=== PATIENT | female | born 1935 | race Hispanic/Latino ===

== ENCOUNTER 2016-12-17 03:34 | Inpatient (IN) | payer MEDICARE, OTHER ==
[2016-12-17 04:17] LABS: BASO # 0.1 K/uL (0.0-0.2); BASO % 0.6 % (0.0-2.0); EOS # 0.1 K/uL (0.0-0.7); EOS % 0.9 % (0.0-4.0); HEMOGLOBIN 10.3 g/dL (12.0-16.0); LYMPH # 0.9 K/uL (1.0-4.3); LYMPH % 9.6 % (20.0-40.0); MEAN CELL VOLUME 86.4 fl (81.0-99.0); MEAN CORPUSCULAR HEMOGLOBIN 28.9 pg (27.0-31.0); MEAN CORPUSCULAR HGB CONC 33.5 g/dL (33.0-37.0); MEAN PLATELET VOLUME 7.1 fl (7.2-11.7); MONO # 0.5 K/uL (0.0-0.8); MONO % 5.7 % (0.0-10.0); NEUT # 7.8 K/uL (1.8-7.0); NEUT % 83.2 % (50.0-75.0); PLATELET COUNT 433 K/uL (130-400); RBC 3.57 Mil/uL (3.80-5.20); RED CELL DISTRIBUTION WIDTH 13.9 % (11.5-14.5); WHITE BLOOD COUNT 9.4 K/uL (4.8-10.8)
[2016-12-17] MEDS ORDERED: Iohexol 240 (50 ml) PO ONE (04:24)
[2016-12-17 04:32] LABS: ALB/GLOB RATIO 1.2 (1.0-2.1); CALCIUM 9.3 mg/dL (8.4-10.2)
[2016-12-17 04:35] LABS: PROTHROMBIN TIME 11.1 Seconds (9.8-13.1)
[2016-12-17 04:37] LABS: PARTIAL THROMBOPLASTIN TIME 29.2 Seconds (25.6-37.1)
[2016-12-17] MEDS ORDERED: Iohexol 240 (50 ml) ONE (04:38)
--- NOTE | 2016-12-17 05:03 | ED PDOC ---
HPI: Abdomen Time Seen by Provider: 12/17/16 03:41 Chief Complaint (Nursing): Abdominal Pain Chief Complaint (Provider): Abdominal Pain History Per: Patient History/Exam Limitations: no limitations Onset/Duration Of Symptoms: Days (x 4) Current Symptoms Are (Timing): Still Present Location Of Pain/Discomfort: LUQ Additional History Per: Family (daughter) Additional Complaint(s): Chasidy Mai is an 80 y/o female with a past medical history of anemia , chronic constipation, and hypertension, who was brought to the ED via EMS for complaints of abdominal pain with associated nausea and vomiting, onset 3 days ago. Pain is worse on the left side. Patient denies constipation, states last bowel movement was 1 day ago. Also denies associated fever, cough, chest pain, and shortness of breath. Patient has had decreased appetite and vomited clear fluid. PMD: Micheal Mercedes MD Past Medical History Reviewed: Historical Data, Nursing Documentation, Vital Signs Vital Signs: Last Vital Signs Temp 98.6 F 12/17/16 03:36 Pulse 71 12/17/16 03:36 Resp 18 12/17/16 03:36 BP 131/70 12/17/16 03:36 Pulse Ox 95 12/17/16 06:21 - Medical History PMH: Anemia, Gall Bladder Disease, HTN, Hyperlipidemia Other PMH: Chronic constipation - Surgical History Surgical History: No Surg Hx - Family History Family History: States: Unknown Family Hx - Social History Current smoker - smoking cessation education provided: No Alcohol: None Drugs: Denies - Allergies Allergies/Adverse Reactions: Allergies Allergy/AdvReac Type Severity Reaction Status Date / Time No Known Allergies Allergy Verified 12/17/16 03:36 Review of Systems ROS Statement: Except As Marked, All Systems Reviewed And Found Negative Constitutional: Positive for: Other (Loss of appetite). Negative for: Fever Cardiovascular: Negative for: Chest Pain Respiratory: Negative for: Cough, Shortness of Breath Gastrointestinal: Positive for: Nausea, Vomiting, Abdominal Pain (Left-sided). Negative for: Constipation Physical Exam - Reviewed Nursing Documentation Reviewed: Yes Vital Signs Reviewed: Yes - Physical Exam Appears: Positive for: Well, Non-toxic, No Acute Distress Head Exam: Positive for: ATRAUMATIC, NORMAL INSPECTION, NORMOCEPHALIC Skin: Positive for: Normal Color, Warm, Dry Eye Exam: Positive for: EOMI, Normal appearance, PERRL ENT: Positive for: Normal ENT Inspection Neck: Positive for: Normal, Painless ROM, Supple Cardiovascular/Chest: Positive for: Regular Rate, Rhythm, Murmur (Systolic murmur 3/6) Respiratory: Positive for: Normal Breath Sounds. Negative for: Accessory Muscle Use, Respiratory Distress Gastrointestinal/Abdominal: Positive for: Soft, Tenderness (Mild LUQ tenderness on palpation). Negative for: Normal Exam Back: Positive for: Normal Inspection. Negative for: Vertebral Tenderness Extremity: Positive for: Normal ROM. Negative for: Pedal Edema, Deformity Neurologic/Psych: Positive for: Alert, Oriented - Laboratory Results Result Diagrams: 12/17/16 03:57 12/17/16 03:57 - ECG O2 Sat by Pulse Oximetry: 95 (RA) Pulse Ox Interpretation: Normal Medical Decision Making Medical Decision Making: Time: 03:48 Initial Impression: 80 y/o female with abdominal pain Initial Plan: --Labs --EKG --Iohexol 50 ml PO --Pending CT Abdomen/Pelvis Time: 04:36 --Toradol 10 mg IV --Zofran 4 mg IV Time: 05:38 --Patient is to be admitted to ED-OBS for abdominal pain Scribe Attestation: Documented by Candice Reyna, acting as a scribe for Farhan Magana MD Provider Scribe Attestation: All medical record entries made by the Scribe were at my direction and personally dictated by me. I have reviewed the chart and agree that the record accurately reflects my personal performance of the history, physical exam, medical decision making, and the department course for this patient. I have also personally directed, reviewed, and agree with the discharge instructions and disposition. ED OBSERVATION Date of observation admission: 12/17/16 Time of observation admission: 05:38 - Observation admission statement Patient is being placed in observation because:: Abdominal pain - Goals of Observation Goals of observation are:: Determine cause and improve symptoms - Progress Note Progress Note: 12/17/16 Time: 05:38 --Patient is resting comfortably. Vital signs are stable. Time: 05:52 --CT Abd/Pelvis is scheduled for 07:00 Time: 07:00 --Patient is signed out by me to Giselle Ochoa MD, pending CT Abdomen/Pelvis and reevaluation Disposition - Clinical Impression Clinical Impression: Abdominal pain - Patient ED Disposition Is Patient to be Admitted: Transfer of Care - Disposition Disposition: Transfer of Care Disposition Time: 05:40 Condition: FAIR Patient Signed Over To: Giselle Ochoa (Pending CT scan and reevaluation)
[2016-12-17 06:27] LABS: BANDS 1 % (0-2); EOSINOPHIL 2 % (0-7); LYMPHOCYTE 11 % (20-50); MONOCYTE 1 % (0-10); NEUTROPHIL 85 % (42-75); PLATELET ESTIMATE SLIGHTLY INCREASED (NORMAL); TOTAL CELLS COUNTED 100
[2016-12-17 06:28] LABS: ANISOCYTOSIS SLIGHT; HYPOCHROMIC SLIGHT; TEARDROP CELLS SLIGHT
--- NOTE | 2016-12-17 07:21 | ED PDOC ---
- Laboratory Results Result Diagrams: 12/17/16 03:57 12/17/16 03:57 - ECG O2 Sat by Pulse Oximetry: 95 (RA) Pulse Ox Interpretation: Normal Medical Decision Making Medical Decision Makin:00 Patient signed over pending CT Abdomen/Pelvis. 8:44 Patient's vitals are stable. Pending CT. 9:03 Reevaluation: CT Results FINDINGS: LOWER THORAX: Unremarkable. LIVER: Unremarkable. No gross lesion or ductal dilatation. GALLBLADDER AND BILE DUCTS: Unremarkable. PANCREAS: Unremarkable. No gross lesion or ductal dilatation. SPLEEN: Unremarkable. ADRENALS: Unremarkable. No mass. KIDNEYS AND URETERS: Unremarkable. No hydronephrosis. No solid mass. VASCULATURE: Unremarkable. No aortic aneurysm. BOWEL: Mild colitis primarily affecting the sigmoid colon without mechanical obstruction. APPENDIX: No abnormalities to suggest acute appendicitis. No right lower quadrant inflammatory processes identified. PERITONEUM: Unremarkable. No free fluid. No free air. LYMPH NODES: Unremarkable. No enlarged lymph nodes. BLADDER: Unremarkable. REPRODUCTIVE: Unremarkable. BONES: No acute fracture. OTHER FINDINGS: The pessary device superior spleen satisfactory position. IMPRESSION: Mild colitis confined to the sigmoid colon without mechanical obstruction. Informed pt and family of the CT and lab results. pt stil has some discomfort and nausea. pt has mild colitis. ordered antibiotics to treat. pt to be admitted to Dr Joseph hammer, [facility] practice resident. Resident Dr Hernandez made aware. Obs MS. for hydration, antibiotics and GI consult. Scribe Attestation: Documented by Svitlana Carolina, acting as a scribe for Giselle Ochoa MD. Provider Scribe Attestation: All medical record entries made by the Scribe were at my direction and personally dictated by me. I have reviewed the chart and agree that the record accurately reflects my personal performance of the history, physical exam, medical decision making, and the department course for this patient. I have also personally directed, reviewed, and agree with the discharge instructions and disposition. Disposition Discussed With : Nyasia Valerio - Clinical Impression Clinical Impression: Abdominal pain, Colitis - POA Present On Arrival: None - Disposition Disposition: Admitted as In-Patient Disposition Time: 09:09 Condition: STABLE
--- NOTE | 2016-12-17 08:40 | CT ---
PROCEDURE: CT Abdomen and Pelvis with contrast HISTORY: Abdominal pain COMPARISON: None. TECHNIQUE: Contrast dose: Oral contrast only. Radiation dose: Total exam DLP = 476.86 mGy-cm. This CT exam was performed using one or more of the following dose reduction techniques: Automated exposure control, adjustment of the mA and/or kV according to patient size, and/or use of iterative reconstruction technique. FINDINGS: LOWER THORAX: Unremarkable. LIVER: Unremarkable. No gross lesion or ductal dilatation. GALLBLADDER AND BILE DUCTS: Unremarkable. PANCREAS: Unremarkable. No gross lesion or ductal dilatation. SPLEEN: Unremarkable. ADRENALS: Unremarkable. No mass. KIDNEYS AND URETERS: Unremarkable. No hydronephrosis. No solid mass. VASCULATURE: Unremarkable. No aortic aneurysm. BOWEL: Mild colitis primarily affecting the sigmoid colon without mechanical obstruction. APPENDIX: No abnormalities to suggest acute appendicitis. No right lower quadrant inflammatory processes identified. PERITONEUM: Unremarkable. No free fluid. No free air. LYMPH NODES: Unremarkable. No enlarged lymph nodes. BLADDER: Unremarkable. REPRODUCTIVE: Unremarkable. BONES: No acute fracture. OTHER FINDINGS: The pessary device superior spleen satisfactory position. IMPRESSION: Mild colitis confined to the sigmoid colon without mechanical obstruction.
[2016-12-17] MEDS ORDERED: Sodium Chloride 0.9% 1,000 ML IV STA (09:10)
--- NOTE | 2016-12-17 10:49 | CP.PCM.HP ---
History of Present Illness - History of Present Illness History of Present Illness: 80 yr old F presented to ED with complaint of nausea , vomiting and abd pain x 3 days s/p eating a grilled cheese sandwhich. She has not been able to tolerate PO diet and most recent episode of clear emesis was this AM, she could not take her meds due to nausea. Patient reports mid abd pain is mainly on left and radiates to the right, is persistent, dull ache, was 10/10. She has PMHx including HTN, HLD, chronic constipation, anemia. In the past she has seen GI- Dr. David for gallstone disease. Patient denies chest pain, SOB, weakness, dizziness or headaches. Her last bowel movement was 1 day ago and was normal, denies blood in stool, denies diarrhea, denies dysuria. Daughters are at bedside (Kaley [phone] and Milly [phone]), report patient had colonoscopy and upper endoscopy <2yrs ago and were told everything was within normal limits. PMD: Dr. Ruiz Specialists: Dr. David PMHx: HTN, HLD, chronic constipation, anemia SurgHx: none SocHx: denies smoking/Etoh/drugs, lives alone in a 2 story house (basement has stairs as well), works chief technology officer as ward secretary, daughter drives her to work daily and lives nearby Medications: Losartan 100mg PO QD, Doxazosin 4mg PO QHS, Bumetanide 1mg PO QOTHERDAY, Pravastatin 20mg PO QD Allergies: NKDA ED Course: VSS: BP 131/70 mmHg, HR 71, Resp 18, O2 sat 95, Temp 98.6F EKG: NSR Labs: CBC H/H 10.3/30.8, rest wnl, coags wnl, CMP wnl, UA moderate leukocyte esterase with WBC's, lipase wnl Abd/Pelvis CT with PO contrast: Mild colitis confined to sigmoid colon without mechanical obstruction, pessary device superior spleen satisfactory position ED tx: NPO, NS 1L at 150 mls/hr, Toradol 10mg IV once, Zofran 4mg IV once, Ciprofloxacin 400mg IV once, Flagyl 500mg IV once Present on Admission - Present on Admission Any Indicators Present on Admission: No History of DVT/PE: No History of Uncontrolled Diabetes: No Urinary Catheter: No Decubitus Ulcer Present: No Review of Systems - Review of Systems All systems: reviewed and no additional remarkable complaints except (other than what is mentioned in the HPI) Past Patient History - Past Social History Alcohol: None Drugs: Denies - CARDIAC Hx Hypertension: Yes - HEMATOLOGICAL/ONCOLOGICAL Hx Anemia: Yes - GASTROINTESTINAL Hx Gall Bladder Disease: Yes - PSYCHIATRIC Hx Substance Use: No Meds Allergies/Adverse Reactions: Allergies Allergy/AdvReac Type Severity Reaction Status Date / Time No Known Allergies Allergy Verified 12/17/16 03:36 Physical Exam - Constitutional Appears: No Acute Distress - Head Exam Head Exam: ATRAUMATIC, NORMOCEPHALIC - Eye Exam Eye Exam: EOMI, PERRL - ENT Exam ENT Exam: Mucous Membranes Moist - Neck Exam Neck exam: Positive for: Full Rom. Negative for: Lymphadenopathy - Respiratory Exam Respiratory Exam: Clear to Auscultation Bilateral, NORMAL BREATHING PATTERN - Cardiovascular Exam Cardiovascular Exam: REGULAR RHYTHM, +S1, +S2 - GI/Abdominal Exam GI & Abdominal Exam: Normal Bowel Sounds, Soft (obese), Tenderness (left mid abd radiating to right, negative murphys sign, negative rebound tenderness). absent: Distended - Extremities Exam Extremities exam: Positive for: full ROM. Negative for: calf tenderness, pedal edema, tenderness - Back Exam Back exam: absent: CVA tenderness (L), CVA tenderness (R) - Neurological Exam Neurological exam: Alert, CN II-XII Intact, Oriented x3 - Psychiatric Exam Psychiatric exam: Normal Affect, Normal Mood - Skin Skin Exam: Dry, Intact, Normal Color, Warm Results - Vital Signs Recent Vital Signs: Last Vital Signs Temp 98.6 F 12/17/16 03:36 Pulse 70 12/17/16 08:10 Resp 18 12/17/16 08:10 BP 140/71 12/17/16 08:10 Pulse Ox 95 12/17/16 09:29 - Labs Result Diagrams: 12/17/16 03:57 12/17/16 03:57 Assessment & Plan - Assessment and Plan (Free Text) Assessment: 80 yr old F admitted for mild colitis with nausea, abd pain and intolerance to PO diet. GI was consulted and per discussion recommended IV antibiotics, rule out C-diff, advance diet as tolerated. Colitis -acute, abd pain, nausea, intolerance PO diet -Abd/Pelvis CT with PO contrast: Mild colitis confined to sigmoid colon without mechanical obstruction -Day 1 of IV antibiotics (Ciproi and Flagyl) -IVF NS at 150mls/hr -Zofran 4mg IV Q6H PRN nausea -Pain management: Toradol 30mg IVP Q6H PRN pain (moderate) -NPO for now, advance diet as tolerated -f/u C. diff, stool culture, UCx HTN -controlled -hold home meds for now (Losartan 100mg PO QD, Doxazosin 4mg PO QHS, Bumetanide 1mg PO QOTHERDAY) Pravastatin 20mg PO QD -resume when patient is tolerating PO diet HLD -stable, chronic -hold home med for now -resume when patient is tolerating PO diet (Pravastatin 20mg PO QD) DVT prophylaxis -Heparin 5,000 units SC Q12 - Date & Time Date: 12/17/16 Time: 09:00
[2016-12-17] MEDS ORDERED: Ciprofloxacin 400mg/200ml D5W 400 MG/200 ML BAG IVPB STA (11:36)
[2016-12-17] MEDS ORDERED: metroNIDAZOLE 500mg/100ml NS 100 ML IVPB SCH (11:45)
[2016-12-17 12:02] LABS: SQUAMOUS EPITHIAL 1 /hpf (0-5); URINE BACTERIA RARE (<OCC); URINE BILIRUBIN NEGATIVE (NEGATIVE); URINE BLOOD SMALL (NEGATIVE); URINE CLARITY CLEAR (Clear); URINE COLOR YELLOW (YELLOW); URINE GLUCOSE (UA) NEG (Normal); URINE LEUKOCYTE ESTERASE MOD Leu/uL (Negative); URINE NITRATE NEGATIVE (NEGATIVE); URINE PROTEIN NEGATIVE (NEGATIVE); URINE UROBILINOGEN 0.2-1.0 mg/dL (0.2-1.0)
--- NOTE | 2016-12-17 12:25 | CARD ---
APPROVED REPORT EKG Measurement Heart [id number] <Conclusion> Normal sinus rhythm Cannot rule out Anterior infarct, age undetermined Abnormal ECG
[2016-12-17] MEDS: metroNIDAZOLE 500mg/100ml NS 100 ML IVPB SCH (21:16)
[2016-12-17] MEDS: Ciprofloxacin 400mg/200ml D5W 400 MG/200 ML BAG IVPB SCH (22:20)
[2016-12-18] MEDS: Pravastatin Sodium 20 MG TAB PO SCH ×2 (00:31→21:29)
[2016-12-18 07:32] LABS: HEMOGLOBIN 9.5 g/dL (12.0-16.0); MEAN CELL VOLUME 87.7 fl (81.0-99.0); MEAN CORPUSCULAR HEMOGLOBIN 28.4 pg (27.0-31.0); MEAN CORPUSCULAR HGB CONC 32.3 g/dL (33.0-37.0); RBC 3.35 Mil/uL (3.80-5.20); RED CELL DISTRIBUTION WIDTH 13.8 % (11.5-14.5); WHITE BLOOD COUNT 8.9 K/uL (4.8-10.8)
[2016-12-18 07:49] LABS: CALCIUM 8.2 mg/dL (8.4-10.2)
[2016-12-18 08:18] VITALS: RESP 18
--- NOTE | 2016-12-18 08:45 | CON ---
DATE: 12/17/2016 REFERRING PHYSICIAN: Dr. Mercedes REASON FOR CONSULTATION: Abdominal pain and discomfort. HISTORY OF PRESENT ILLNESS: This is an 80-year-old female known to our office with history of anemia, chronic constipation, hypertension, brought in here essentially without pain and discomfort. Noted some nausea and vomiting about 2 to 3 days ago, *------* on the left side. Now feels better. She had bowel movements couple days ago. She has no fevers, no chills. No nausea, no vomiting now. No diarrhea. Currently lying in bed comfortably, in no apparent distress. PAST MEDICAL HISTORY: Includes hypertension, anemia, hyperlipidemia. SURGICAL HISTORY: Noncontributory. FAMILY HISTORY: Noncontributory. REVIEW OF SYSTEMS: Have been reviewed and negative, other than positives in the HPI. PHYSICAL EXAMINATION: VITAL SIGNS: In hospital was grossly unremarkable. GENERAL: An elderly-appearing female, lying in the bed comfortably, in no apparent distress. HEENT: Head is normocephalic, atraumatic. Eyes, pupils are equal, round, and reactive to light. No conjunctival pallor or icterus. NECK: Supple. Normal range of motion. No lymphadenopathy appreciated. LUNGS: Coarse breath sounds bilaterally. CARDIOPULMONARY: S1 and S2. Regular rate and rhythm. No murmurs. ABDOMEN: Soft and nondistended. Bowel sounds present. No rebound, no guarding. RECTAL: Deferred. EXTREMITIES: Positive pulses bilaterally. SKIN: Warm, dry, and intact. NEUROLOGIC: A and O x3. LABORATORY DATA: Labs have been reviewed and radiologist workup *---0.54---*. WBC is 9.5, hemoglobin is 7.3. ASSESSMENT AND PLAN: This is an 80-year-old female with colitis. Clostridium difficile is pending. Antibiotics were *---0.58---*. Thank for the consult. Christopher Baer MD/ PhD cc: Dr. Mercedes
[2016-12-18] MEDS: metroNIDAZOLE 500mg/100ml NS 100 ML IVPB SCH ×2 (09:26→21:39)
[2016-12-18] MEDS: Ciprofloxacin 400mg/200ml D5W 400 MG/200 ML BAG IVPB SCH ×2 (09:26→22:50)
[2016-12-18] MEDS ORDERED: Alum-Mag Hydrox-Simethicone Susp (30 mL) PO ONE (11:36)
--- NOTE | 2016-12-18 11:41 | CP.PCM.PN ---
<Brisa Hernandez - Last Filed: 12/18/16 11:28> Subjective - Date & Time of Evaluation Date of Evaluation: 12/18/16 Time of Evaluation: 07:30 - Subjective Subjective: Patient seen and examined at bedside, in no acute distress. Reports her abd pain persists, her stomach has expanded and she has not had a bowel movement for 2 days. Denies flatulence. Was able to tolerate minimal amount of clear liquid. Objective - Vital Signs/Intake and Output Vital Signs (last 24 hours): Temp Pulse Resp BP Pulse Ox 98.2 F 51 L 18 118/69 93 L 12/18/16 08:17 12/18/16 08:17 12/18/16 08:17 12/18/16 08:17 12/18/16 08:17 Intake and Output: 12/18/16 12/18/16 06:59 18:59 Intake Total 1150 Balance 1150 - Medications Medications: Current Medications Bumetanide (Bumex) 1 mg PO QOTHERDAY [facility] Doxazosin Mesylate (Cardura) 4 mg PO HS [facility] Last Admin: 12/17/16 21:17 Dose: 4 mg Heparin Sodium (Porcine) (Heparin) 5,000 units SC Q12 [facility] PRN Reason: Protocol Last Admin: 12/18/16 09:27 Dose: 5,000 units Metronidazole (Flagyl 500mg/100ml Ns) 100 mls @ 100 mls/hr IVPB ONCE [facility] Metronidazole (Flagyl 500mg/100ml Ns) 100 mls @ 100 mls/hr IVPB Q12 [facility] Last Admin: 12/18/16 09:26 Dose: 100 mls/hr Ciprofloxacin (Cipro 400mg/200ml Dsw) 400 mg in 200 mls @ 200 mls/hr IVPB Q12 [facility] Last Admin: 12/18/16 09:26 Dose: 200 mls/hr Ketorolac Tromethamine (Toradol) 30 mg IVP Q6 PRN PRN Reason: Pain, moderate (4-7) Last Admin: 12/17/16 15:34 Dose: 30 mg Losartan Potassium (Cozaar) 100 mg PO DAILY [facility] Last Admin: 12/18/16 09:32 Dose: Not Given Ondansetron HCl (Zofran Inj) 4 mg IVP Q6 PRN PRN Reason: Nausea/Vomiting Pravastatin Sodium (Pravachol) 20 mg PO HS [facility] Last Admin: 12/18/16 00:31 Dose: 20 mg - Labs Labs: 12/18/16 06:10 12/18/16 06:10 PT 11.1 Seconds (9.8-13.1) 12/17/16 03:57 INR 1.0 (0.9-1.2) 12/17/16 03:57 APTT 29.2 Seconds (25.6-37.1) 12/17/16 03:57 - Constitutional Appears: Other (Ill) - Head Exam Head Exam: ATRAUMATIC, NORMOCEPHALIC - Eye Exam Eye Exam: EOMI, PERRL - ENT Exam ENT Exam: Mucous Membranes Moist - Neck Exam Neck Exam: Full ROM. absent: Lymphadenopathy - Respiratory Exam Respiratory Exam: Clear to Ausculation Bilateral, NORMAL BREATHING PATTERN - Cardiovascular Exam Cardiovascular Exam: REGULAR RHYTHM, +S1, +S2 - GI/Abdominal Exam GI & Abdominal Exam: Distended, Soft, Tenderness (to palpation-mid abdominal), Normal Bowel Sounds - Extremities Exam Extremities Exam: Full ROM. absent: Calf Tenderness, Pedal Edema - Back Exam Back Exam: absent: CVA tenderness (L), CVA tenderness (R) - Neurological Exam Neurological Exam: Alert, Awake, CN II-XII Intact, Oriented x3 - Psychiatric Exam Psychiatric exam: Normal Affect, Normal Mood - Skin Skin Exam: Dry, Intact, Pallor, Warm Assessment and Plan - Assessment and Plan (Free Text) Assessment: 80 yr old F admitted for mild colitis with nausea, abd pain and intolerance to PO diet. GI was consulted and per discussion recommended IV antibiotics, rule out C-diff, advance diet as tolerated. Patient with mild improvement, abd persists, has not been able to produce a stool sample for cultures. Will give medicine help in bowel movement. Pain controlled with medication. Colitis -acute, abd pain, nausea, intolerance PO diet -Abd/Pelvis CT with PO contrast: Mild colitis confined to sigmoid colon without mechanical obstruction -Day 2 of IV antibiotics (Ciproi and Flagyl) -IVF NS at 150mls/hr -Zofran 4mg IV Q6H PRN nausea -Pain management: Toradol 30mg IVP Q6H PRN pain (moderate) -Advance diet as tolerated -UCx no growth, f/u C. diff, stool culture HTN -controlled -hold home meds for now (Losartan 100mg PO QD, Doxazosin 4mg PO QHS, Bumetanide 1mg PO QOTHERDAY) -resume when patient is tolerating PO diet HLD -stable, chronic -hold home med for now -resume when patient is tolerating PO diet (Pravastatin 20mg PO QD) DVT /GI prophylaxis -Heparin 5,000 units SC Q12 -Florastor 250mg PO BID <Salo Mohan - Last Filed: 12/18/16 11:50> Objective - Vital Signs/Intake and Output Vital Signs (last 24 hours): Temp Pulse Resp BP Pulse Ox 98.2 F 51 L 18 118/69 93 L 12/18/16 08:17 12/18/16 08:17 12/18/16 08:17 12/18/16 08:17 12/18/16 08:17 Intake and Output: 12/18/16 12/18/16 06:59 18:59 Intake Total 1150 Balance 1150 - Medications Medications: Current Medications Bumetanide (Bumex) 1 mg PO QOTHERDAY [facility] Doxazosin Mesylate (Cardura) 4 mg PO HS [facility] Last Admin: 12/17/16 21:17 Dose: 4 mg Heparin Sodium (Porcine) (Heparin) 5,000 units SC Q12 [facility] PRN Reason: Protocol Last Admin: 12/18/16 09:27 Dose: 5,000 units Metronidazole (Flagyl 500mg/100ml Ns) 100 mls @ 100 mls/hr IVPB Q12 [facility] Last Admin: 12/18/16 09:26 Dose: 100 mls/hr Ciprofloxacin (Cipro 400mg/200ml Dsw) 400 mg in 200 mls @ 200 mls/hr IVPB Q12 [facility] Last Admin: 12/18/16 09:26 Dose: 200 mls/hr Ketorolac Tromethamine (Toradol) 30 mg IVP Q6 PRN PRN Reason: Pain, moderate (4-7) Last Admin: 12/17/16 15:34 Dose: 30 mg Losartan Potassium (Cozaar) 100 mg PO DAILY [facility] Last Admin: 12/18/16 09:32 Dose: Not Given Ondansetron HCl (Zofran Inj) 4 mg IVP Q6 PRN PRN Reason: Nausea/Vomiting Pravastatin Sodium (Pravachol) 20 mg PO HS [facility] Last Admin: 12/18/16 00:31 Dose: 20 mg Saccharomyces Boulardii (Florastor) 250 mg PO BID [facility] - Labs Labs: 12/18/16 06:10 12/18/16 06:10 PT 11.1 Seconds (9.8-13.1) 12/17/16 03:57 INR 1.0 (0.9-1.2) 12/17/16 03:57 APTT 29.2 Seconds (25.6-37.1) 12/17/16 03:57 Attending/Attestation - Attestation I have personally seen and examined this patient.: Yes I have fully participated in the care of the patient.: Yes I have reviewed all pertinent clinical information, including history, physical exam and plan: Yes
[2016-12-18] MEDS: Sodium Chloride 0.9% 1,000 ML IV SCH ×2 (13:19→21:39)
[2016-12-18] MEDS: Saccharomyces Boulardi 250 mg Cap PO SCH ×2 (13:48→17:46)
[2016-12-18] MEDS ORDERED: Alum-Mag Hydrox-Simethicone Susp (30 mL) PO PRN (16:40)
[2016-12-18] MEDS: Simethicone 80 mg Chewtab PO SCH (17:45)
[2016-12-19] MEDS: Sodium Chloride 0.9% 1,000 ML IV SCH ×2 (03:54→09:55)
--- NOTE | 2016-12-19 07:32 | PQF GENQUE ---
This form is a permanent part of the medical record 12/19/16 Dr. Craig, After workup would you please clarify the type of gastroenteritis if known. Admitted with abdominal pain, vomiting and chronic constipation. Afebrile. WBC 9.4 with a L shift. CT : Mild colitis sigmoid area. Treated with IVAB. Stool for c difficile pending. Clarification of your documentation is requested to better reflect the severity of illness and intensity of treatment of your patient. Indicators present [] Specify: [] [] Specify: [] [] Specify: [] [] Specify: [] Location in the medical record that reflects the above clinical findings: [] Treatment Provided: [] PHYSICIAN'S RESPONSE [] Allergic [] Due to clostridium difficile [] Drug induced [] Infectious [] Ischemic [] Nonbacterial [] Viral [] Other specified ( please clarify) [] Unspecified Based on your medical judgment of the clinical indicators outlined above please clarify the following: [] Practitioner response [] If unable to determine, please check the box, sign and date. Present On Admission (POA) Indicator: [] Present at the time of admission [] Not present at the time of admission [] Clinically Undetermined In responding to this query, please exercise your independent professional judgment. The fact that a question is asked does not imply that any particular answer is desired or expected. Thank you for your clarification on this documentation. If you have any questions please call:ext [phone] * Thank you, Desirae Murphy RN CDMP [facility]
[2016-12-19 08:19] VITALS: TEMP 97.7
[2016-12-19 08:40] VITALS: BP 153/69; O2SAT 60
[2016-12-19] MEDS: metroNIDAZOLE 500mg/100ml NS 100 ML IVPB SCH (08:42)
[2016-12-19] MEDS: Saccharomyces Boulardi 250 mg Cap PO SCH (08:42)
[2016-12-19 08:43] VITALS: PULSE 60
[2016-12-19] MEDS: Simethicone 80 mg Chewtab PO SCH (08:43)
--- NOTE | 2016-12-19 08:56 | CP.PCM.DIS ---
Addendum entered and electronically signed by Brisa Hernandez MD 12/19/16 21 :39: Colitis of unknown etiology. Original Note: <Brisa Hernandez - Last Filed: 12/19/16 19:44> Provider - Provider Date of Admission: 12/18/16 11:38 Attending physician: Micheal Mercedes MD Primary care physician: Dr. Mercedes Consults: Dr. Baer-GI Time Spent in preparation of Discharge (in minutes): 30 Diagnosis - Discharge Diagnosis (1) Colitis Status: Acute Priority: Medium (2) Abdominal pain Status: Resolved Priority: Low Hospital Course - Lab Results Lab Results: Most Recent Lab Values WBC 8.9 K/uL (4.8-10.8) 12/18/16 06:10 RBC 3.35 Mil/uL (3.80-5.20) L 12/18/16 06:10 Hgb 9.5 g/dL (12.0-16.0) L 12/18/16 06:10 Hct 29.4 % (34.0-47.0) L 12/18/16 06:10 MCV 87.7 fl (81.0-99.0) 12/18/16 06:10 MCH 28.4 pg (27.0-31.0) 12/18/16 06:10 MCHC 32.3 g/dL (33.0-37.0) L 12/18/16 06:10 RDW 13.8 % (11.5-14.5) 12/18/16 06:10 Plt Count 434 K/uL (130-400) H 12/18/16 06:10 MPV 7.1 fl (7.2-11.7) L 12/17/16 03:57 Neut % (Auto) 83.2 % (50.0-75.0) H 12/17/16 03:57 Lymph % (Auto) 9.6 % (20.0-40.0) L 12/17/16 03:57 Burt % (Auto) 5.7 % (0.0-10.0) 12/17/16 03:57 Eos % (Auto) 0.9 % (0.0-4.0) 12/17/16 03:57 Baso % (Auto) 0.6 % (0.0-2.0) 12/17/16 03:57 Neut # 7.8 K/uL (1.8-7.0) H 12/17/16 03:57 Lymph # 0.9 K/uL (1.0-4.3) L 12/17/16 03:57 Burt # 0.5 K/uL (0.0-0.8) 12/17/16 03:57 Eos # 0.1 K/uL (0.0-0.7) 12/17/16 03:57 Baso # 0.1 K/uL (0.0-0.2) 12/17/16 03:57 Neutrophils % (Manual) 85 % (42-75) H 12/17/16 03:57 Band Neutrophils % 1 % (0-2) 12/17/16 03:57 Lymphocytes % (Manual) 11 % (20-50) L 12/17/16 03:57 Monocytes % (Manual) 1 % (0-10) 12/17/16 03:57 Eosinophils % (Manual) 2 % (0-7) 12/17/16 03:57 Platelet Estimate Slightly increased (NORMAL) H 12/17/16 03:57 Hypochromasia (manual) Slight 12/17/16 03:57 Anisocytosis (manual) Slight 12/17/16 03:57 Tear Drop Cells Slight 12/17/16 03:57 PT 11.1 Seconds (9.8-13.1) 12/17/16 03:57 INR 1.0 (0.9-1.2) 12/17/16 03:57 APTT 29.2 Seconds (25.6-37.1) 12/17/16 03:57 Sodium 137 mmol/l (132-148) 12/18/16 06:10 Potassium 4.5 MMOL/L (3.6-5.0) 12/18/16 06:10 Chloride 109 mmol/L (98-107) H 12/18/16 06:10 Carbon Dioxide 21 mmol/L (22-30) L 12/18/16 06:10 Anion Gap 12 (10-20) 12/18/16 06:10 BUN 24 mg/dl (7-17) H 12/18/16 06:10 Creatinine 1.1 mg/dL (0.7-1.2) 12/18/16 06:10 Est GFR ( Amer) 58 12/18/16 06:10 Est GFR (Non-Af Amer) 48 12/18/16 06:10 Random Glucose 80 mg/dL (65-105) 12/18/16 06:10 Calcium 8.2 mg/dL (8.4-10.2) L 12/18/16 06:10 Total Bilirubin 0.5 mg/dl (0.2-1.3) 12/17/16 03:57 AST 25 U/L (14-36) 12/17/16 03:57 ALT 37 U/L (9-52) 12/17/16 03:57 Alkaline Phosphatase 80 U/L (38-126) 12/17/16 03:57 Total Protein 7.2 G/DL (6.3-8.2) 12/17/16 03:57 Albumin 4.0 g/dL (3.5-5.0) 12/17/16 03:57 Globulin 3.3 gm/dL (2.2-3.9) 12/17/16 03:57 Albumin/Globulin Ratio 1.2 (1.0-2.1) 12/17/16 03:57 Lipase 110 U/L (23-300) 12/17/16 03:57 Urine Color Yellow (YELLOW) 12/17/16 11:54 Urine Clarity Clear (Clear) 12/17/16 11:54 Urine pH 5.0 (5.0-8.0) 12/17/16 11:54 Ur Specific [place] 1.019 (1.003-1.030) 12/17/16 11:54 Urine Protein Negative mg/dL (NEGATIVE) 12/17/16 11:54 Urine Glucose (UA) Neg mg/dL (Normal) 12/17/16 11:54 Urine Ketones Trace mg/dL (NEGATIVE) 12/17/16 11:54 Urine Blood Small (NEGATIVE) 12/17/16 11:54 Urine Nitrate Negative (NEGATIVE) 12/17/16 11:54 Urine Bilirubin Negative (NEGATIVE) 12/17/16 11:54 Urine Urobilinogen 0.2-1.0 mg/dL (0.2-1.0) 12/17/16 11:54 Ur Leukocyte Esterase Mod Rodolfo/uL (Negative) 12/17/16 11:54 Urine RBC (Auto) 19 /hpf (0-3) H 12/17/16 11:54 Urine Microscopic WBC 43 /hpf (0-5) H 12/17/16 11:54 Ur Squamous Epith Cells 1 /hpf (0-5) 12/17/16 11:54 Urine Bacteria Rare (<OCC) 12/17/16 11:54 - Hospital Course Hospital Course: 80 yr old F admitted for sigmoid colitis with nausea, abd pain and intolerance to PO diet. GI was onboard. Patient improved with IV antibiotics, IV fluids, was NPO with slow advancement of diet as tolerated. C-diff resulted negative today, abdominal pain resolved and patient is now able to tolerate PO diet. Was discharged to home stable with instructions to take PO antibiotics as prescribed ,take OTC Probiotics, follow up with Gastroenterology- Dr. David/ Dr. Baer and follow up with PMD Dr. Mercedes within 1 week. - Date & Time of H&P Date of H&P: 12/17/16 Time of H&P: 10:49 Discharge Exam - Head Exam Head Exam: ATRAUMATIC, NORMOCEPHALIC - Eye Exam Eye Exam: EOMI, PERRL - ENT Exam ENT Exam: Mucous Membranes Moist - Neck Exam Neck exam: Full Rom - Respiratory Exam Respiratory Exam: Clear to PA & Lateral, NORMAL BREATHING PATTERN - Cardiovascular Exam Cardiovascular Exam: REGULAR RHYTHM, +S1, +S2 - GI/Abdominal Exam GI & Abdominal Exam: Normal Bowel Sounds, Soft. absent: Tenderness - Extremities Exam Extremities exam: full ROM (no calf tenderness, no pedal edema) - Back Exam Back exam: absent: CVA tenderness (L), CVA tenderness (R) - Neurological Exam Neurological exam: Alert, CN II-XII Intact, Oriented x3 - Psychiatric Exam Psychiatric exam: Normal Affect, Normal Mood - Skin Skin Exam: Dry, Intact, Normal Color Discharge Plan - Discharge Medications Prescriptions: Ciprofloxacin [Cipro] 500 mg PO BID #6 tab metroNIDAZOLE [Flagyl] 500 mg PO BID #6 tab - Follow Up Plan Condition: STABLE Disposition: HOME/ ROUTINE Instructions: Infectious Colitis (GEN) Additional Instructions: -Take medications as prescribed -Take OTC Probiotics -Follow up with Gastroenterology- Dr. David/ Dr. Baer -Follow up with your PMD Dr. Mercedes within 1 week Referrals: Micheal Mercedes MD [Staff Provider] - Denzel David [Staff Provider] - Christopher Baer MD, PhD [Staff Provider] - <Salo Mohan - Last Filed: 12/22/16 07:07> Provider - Provider Date of Admission: 12/18/16 11:38 Attending physician: Micheal Mercedes MD Hospital Course - Lab Results Lab Results: Micro Results 12/18/16 16:53 Stool Stool Culture - Final NO SALMONELLA, SHIGELLA OR CAMPYLOBACTER ISOLATED. Most Recent Lab Values WBC 8.9 K/uL (4.8-10.8) 12/18/16 06:10 RBC 3.35 Mil/uL (3.80-5.20) L 12/18/16 06:10 Hgb 9.5 g/dL (12.0-16.0) L 12/18/16 06:10 Hct 29.4 % (34.0-47.0) L 12/18/16 06:10 MCV 87.7 fl (81.0-99.0) 12/18/16 06:10 MCH 28.4 pg (27.0-31.0) 12/18/16 06:10 MCHC 32.3 g/dL (33.0-37.0) L 12/18/16 06:10 RDW 13.8 % (11.5-14.5) 12/18/16 06:10 Plt Count 434 K/uL (130-400) H 12/18/16 06:10 MPV 7.1 fl (7.2-11.7) L 12/17/16 03:57 Neut % (Auto) 83.2 % (50.0-75.0) H 12/17/16 03:57 Lymph % (Auto) 9.6 % (20.0-40.0) L 12/17/16 03:57 Burt % (Auto) 5.7 % (0.0-10.0) 12/17/16 03:57 Eos % (Auto) 0.9 % (0.0-4.0) 12/17/16 03:57 Baso % (Auto) 0.6 % (0.0-2.0) 12/17/16 03:57 Neut # 7.8 K/uL (1.8-7.0) H 12/17/16 03:57 Lymph # 0.9 K/uL (1.0-4.3) L 12/17/16 03:57 Burt # 0.5 K/uL (0.0-0.8) 12/17/16 03:57 Eos # 0.1 K/uL (0.0-0.7) 12/17/16 03:57 Baso # 0.1 K/uL (0.0-0.2) 12/17/16 03:57 Neutrophils % (Manual) 85 % (42-75) H 12/17/16 03:57 Band Neutrophils % 1 % (0-2) 12/17/16 03:57 Lymphocytes % (Manual) 11 % (20-50) L 12/17/16 03:57 Monocytes % (Manual) 1 % (0-10) 12/17/16 03:57 Eosinophils % (Manual) 2 % (0-7) 12/17/16 03:57 Platelet Estimate Slightly increased (NORMAL) H 12/17/16 03:57 Hypochromasia (manual) Slight 12/17/16 03:57 Anisocytosis (manual) Slight 12/17/16 03:57 Tear Drop Cells Slight 12/17/16 03:57 PT 11.1 Seconds (9.8-13.1) 12/17/16 03:57 INR 1.0 (0.9-1.2) 12/17/16 03:57 APTT 29.2 Seconds (25.6-37.1) 12/17/16 03:57 Sodium 137 mmol/l (132-148) 12/18/16 06:10 Potassium 4.5 MMOL/L (3.6-5.0) 12/18/16 06:10 Chloride 109 mmol/L (98-107) H 12/18/16 06:10 Carbon Dioxide 21 mmol/L (22-30) L 12/18/16 06:10 Anion Gap 12 (10-20) 12/18/16 06:10 BUN 24 mg/dl (7-17) H 12/18/16 06:10 Creatinine 1.1 mg/dL (0.7-1.2) 12/18/16 06:10 Est GFR ( Amer) 58 12/18/16 06:10 Est GFR (Non-Af Amer) 48 12/18/16 06:10 Random Glucose 80 mg/dL (65-105) 12/18/16 06:10 Calcium 8.2 mg/dL (8.4-10.2) L 12/18/16 06:10 Total Bilirubin 0.5 mg/dl (0.2-1.3) 12/17/16 03:57 AST 25 U/L (14-36) 12/17/16 03:57 ALT 37 U/L (9-52) 12/17/16 03:57 Alkaline Phosphatase 80 U/L (38-126) 12/17/16 03:57 Total Protein 7.2 G/DL (6.3-8.2) 12/17/16 03:57 Albumin 4.0 g/dL (3.5-5.0) 12/17/16 03:57 Globulin 3.3 gm/dL (2.2-3.9) 12/17/16 03:57 Albumin/Globulin Ratio 1.2 (1.0-2.1) 12/17/16 03:57 Lipase 110 U/L (23-300) 12/17/16 03:57 Urine Color Yellow (YELLOW) 12/17/16 11:54 Urine Clarity Clear (Clear) 12/17/16 11:54 Urine pH 5.0 (5.0-8.0) 12/17/16 11:54 Ur Specific [place] 1.019 (1.003-1.030) 12/17/16 11:54 Urine Protein Negative mg/dL (NEGATIVE) 12/17/16 11:54 Urine Glucose (UA) Neg mg/dL (Normal) 12/17/16 11:54 Urine Ketones Trace mg/dL (NEGATIVE) 12/17/16 11:54 Urine Blood Small (NEGATIVE) 12/17/16 11:54 Urine Nitrate Negative (NEGATIVE) 12/17/16 11:54 Urine Bilirubin Negative (NEGATIVE) 12/17/16 11:54 Urine Urobilinogen 0.2-1.0 mg/dL (0.2-1.0) 12/17/16 11:54 Ur Leukocyte Esterase Mod Rodolfo/uL (Negative) 12/17/16 11:54 Urine RBC (Auto) 19 /hpf (0-3) H 12/17/16 11:54 Urine Microscopic WBC 43 /hpf (0-5) H 12/17/16 11:54 Ur Squamous Epith Cells 1 /hpf (0-5) 12/17/16 11:54 Urine Bacteria Rare (<OCC) 12/17/16 11:54 C. difficile Ag & Toxin Negative (NEGATIVE) 12/18/16 16:53 Attending/Attestation - Attestation I have personally seen and examined this patient.: Yes I have fully participated in the care of the patient.: Yes I have reviewed all pertinent clinical information, including history, physical exam and plan: Yes
[2016-12-19] MEDS: Ciprofloxacin 400mg/200ml D5W 400 MG/200 ML BAG IVPB SCH (09:54)
== END 2016-12-19 12:01 | disposition home health service (06) | DRG 392 ==
LOC: H.ER 03:34 → H.EROBSV 06:29 → INTOOBSV 09:09 → OBSVTOIN 09:09 → H.ERHOLD 09:40 → H.EROBSV 11:38 → H.MEDSURG1 12:01 → OBSVTOIN 12-18 11:38
PROVIDERS: ADMIT Family Medicine; ATTEND Family Medicine
DX: K52.9 Noninfective gastroenteritis and colitis, unspecified (principal); D64.9 Anemia, unspecified; I10 Essential (primary) hypertension; E78.5 Hyperlipidemia, unspecified; K59.09 Other constipation; K82.9 Disease of gallbladder, unspecified